=== PATIENT | female | born 1950 | race African-American/Black ===

== ENCOUNTER 2022-05-14 12:15 | Inpatient (IN) | payer OTHER ==
[~2022-05-14] VITALS: Ht 170.2 cm; Wt 84.4 kg
[~2022-05-14 12:15] MED LIST: SYNTHROID PO; VIT1TABL5 MT
[2022-05-14] MEDS ORDERED: MORPHINE SULFATE 4 MG/ML CPJ (NOT FOR IM USE) IV ONE ×2 (13:00→16:15)
[2022-05-14 13:58] LABS: BASOPHILS % 0.7 % (0.0-2.0); EOSINOPHILS % 1.8 % (0.0-5.0); HEMOGLOBIN. 13.3 g/dL (12.0-16.0); LYMPHOCYTES % 18.1 % (20.0-50.0); MEAN CORPUSCULAR VOLUME 93.3 fL (81.0-99.0); MEAN PLATELET VOLUME 7.9 fl (7.4-10.4); MONOCYTES % 4.2 % (2.0-8.0); NEUTROPHILS % 75.2 % (40.0-76.0); PLATELET 233 x1000/uL (130-400); RED BLOOD CELL COUNT 4.28 mill/uL (4.2-5.4); RED CELL DISTRIBUTION WIDTH 13.8 % (11.6-14.6)
[2022-05-14 14:08] LABS: CHLORIDE 106 mEq/L (98-107)
[2022-05-14] MEDS ORDERED: MORPHINE SULFATE 4 MG/ML CPJ (NOT FOR IM USE) IV NR (15:00)
[2022-05-14] MEDS ORDERED: DIPHENHYDRAMINE 50MG/ML VIAL IV NR (17:14)
[2022-05-14] MEDS: ASPIRIN 325MG EC TABLET PO NR ×2 (18:00→18:18)
[2022-05-14] MEDS: METHYLPREDNISOLONE SOD SUCC 125 MG/2 ML VIAL IV NR ×2 (18:04→18:18)
[2022-05-14] MEDS ORDERED: IOHEXOL-350 100 ML BOTTLE ONE (19:45)
[2022-05-14] MEDS ORDERED: NALOXONE HCL 0.4MG/ML VIAL IV PRN (21:15)
[2022-05-14] MEDS: MORPHINE SULFATE 2 MG/ML CPJ (NOT FOR IM USE) IV PRN (21:17)
[2022-05-14] MEDS ORDERED: LIDO35.421 TP (22:08)
[2022-05-14] MEDS ORDERED: LEVO100T9 PO (22:08)
[2022-05-14 22:28] VITALS: BP 172/98
[2022-05-14] MEDS ORDERED: ONDANSETRON HCL 4MG/2ML INJ IV PRN (23:00)
[2022-05-14] MEDS: HYDROCODONE/ACETAMINOPHEN 10/325MG TABLET PO PRN (23:41)
[2022-05-14] MEDS: AMLODIPINE 10MG TABLET PO SCH (23:41)
[2022-05-15] VITALS: BP 138/88
[2022-05-15 04:00] VITALS: BP 138/91
[2022-05-15] MEDS: HYDROCODONE/ACETAMINOPHEN 10/325MG TABLET PO PRN ×4 (04:54→22:08)
[2022-05-15] MEDS: LEVOTHYROXINE SODIUM 100MCG TABLET PO SCH (06:28)
[2022-05-15 08:00] VITALS: BP 128/79
[2022-05-15] MEDS: AMLODIPINE 10MG TABLET PO SCH (09:13)
[2022-05-15] MEDS: ASPIRIN 81MG TABLET PO SCH (09:14)
[2022-05-15 10:54] LABS: BASOPHILS % 0.1 % (0.0-2.0); HEMATOCRIT. 41.1 % (36.0-48.0); HEMOGLOBIN. 13.7 g/dL (12.0-16.0); LYMPHOCYTES % 11.9 % (20.0-50.0); MEAN CORPUSCULAR HEMOGLOBIN 31.5 pg (28.0-32.0); MEAN CORPUSCULAR VOLUME 94.6 fL (81.0-99.0); MEAN PLATELET VOLUME 8.8 fl (7.4-10.4); MONOCYTES % 3.5 % (2.0-8.0); NEUTROPHILS % 84.5 % (40.0-76.0); PLATELET 225 x1000/uL (130-400); RED BLOOD CELL COUNT 4.35 mill/uL (4.2-5.4)
[2022-05-15 12:00] VITALS: BP 123/79
[2022-05-15 12:11] LABS: CHLORIDE 108 mEq/L (98-107)
[2022-05-15 12:24] LABS: HDL CHOLESTEROL 90 mg/dL (40-59); LDL CHOLESTEROL 92 mg/dL (5-100); T4 FREE 1.66 ng/dL (0.76-1.46)
[2022-05-15 16:00] VITALS: BP 98/71
[2022-05-15 17:09] LABS: *AMPHETAMINES SCREEN URINE NEGATIVE (NEGATIVE); *BARBITURATES SCREEN URINE NEGATIVE (NEGATIVE); *BENZODIAZEPINES SCREEN URINE NEGATIVE (NEGATIVE); *COCAINE SCREEN URINE NEGATIVE (NEGATIVE); CANNABINOID URINE SCREEN NEGATIVE (NEGATIVE); METHADONE URINE SCREEN NEGATIVE (NEGATIVE); OPIATES URINE SCREEN PRESUMTIVE POSITIVE (NEGATIVE); PHENCYCLIDINE URINE SCREEN NEGATIVE (NEGATIVE)
[2022-05-15 20:00] VITALS: BP 142/73
[2022-05-16] VITALS: BP 113/67
[2022-05-16 00:44] LABS: CREATINE KINASE MB FRACTION 3.1 ng/mL (0.5-3.6)
[2022-05-16] MEDS: MORPHINE SULFATE 2 MG/ML CPJ (NOT FOR IM USE) IV PRN ×3 (02:33→10:32)
[2022-05-16 04:00] VITALS: BP 141/84
[2022-05-16] MEDS: LEVOTHYROXINE SODIUM 100MCG TABLET PO SCH (06:03)
[2022-05-16 06:48] LABS: CREATINE KINASE MB FRACTION 2.6 ng/mL (0.5-3.6)
[2022-05-16 08:00] VITALS: BP 128/79
[2022-05-16] MEDS: ASPIRIN 81MG TABLET PO SCH (08:43)
[2022-05-16] MEDS: AMLODIPINE 10MG TABLET PO SCH (08:43)
[2022-05-16] MEDS ORDERED: LIDOCAINE 5% PATCH TOP SCH (10:30)
[2022-05-16 12:00] VITALS: BP 121/79
[2022-05-16] MEDS ORDERED: LIDO700A30 TOP (12:21)
[2022-05-16 13:19] LABS: CHLORIDE 108 mEq/L (98-107)
[2022-05-16 13:23] LABS: BASOPHILS % 0.4 % (0.0-2.0); EOSINOPHILS % 0.8 % (0.0-5.0); HEMATOCRIT. 41.7 % (36.0-48.0); HEMOGLOBIN. 13.7 g/dL (12.0-16.0); LYMPHOCYTES % 17.5 % (20.0-50.0); MEAN CORPUSCULAR HEMOGLOBIN 31.3 pg (28.0-32.0); MEAN CORPUSCULAR VOLUME 95.8 fL (81.0-99.0); MEAN PLATELET VOLUME 8.4 fl (7.4-10.4); MONOCYTES % 6.2 % (2.0-8.0); NEUTROPHILS % 75.1 % (40.0-76.0); PLATELET 212 x1000/uL (130-400); RED BLOOD CELL COUNT 4.36 mill/uL (4.2-5.4); RED CELL DISTRIBUTION WIDTH 14.3 % (11.6-14.6)
[2022-05-16 14:01] VITALS: BP 121/79
== END 2022-05-16 15:28 | disposition home or self-care (01) | DRG 384 ==
LOC: ER 12:15 → EDBEDREQ 15:35 → 7EST 17:36 → EDBEDREQTM 17:38 → EDBEDREQ 17:38 → ENRESERV 20:09 → 7EST 21:52
PROVIDERS: ADMIT Family Medicine; ATTEND Family Medicine
DX: S20.219A Contusion of unspecified front wall of thorax, initial encounter (principal); E03.9 Hypothyroidism, unspecified; Z20.822 Contact with and (suspected) exposure to COVID-19; E78.5 Hyperlipidemia, unspecified; R77.8 Other specified abnormalities of plasma proteins; Z79.899 Other long term (current) drug therapy; Z91.041 Radiographic dye allergy status; Z88.8 Allergy status to other drugs, medicaments and biological substances; V89.2XXA Person injured in unspecified motor-vehicle accident, traffic, initial encounter; Y93.89 Activity, other specified; Y92.410 Unspecified street and highway as the place of occurrence of the external cause; Y99.8 Other external cause status
CPT/HCPCS: 36415; 71045; 71250; 71275; 74174; 80053; 80061; 80305; 82550; 82553; 83036; 83880; 84439; 84443; 84484; 85025; 85379; 87426; 93005; 93306; 93970; 99291; C9803; J1200; J2270; J2930; Q9967